=== PATIENT | male | born 2000 | race Caucasian/White ===

== ENCOUNTER 2023-12-04 16:06 | Outpatient (CLI) | payer BC ==
[~2023-12-04 16:06] MED LIST: Iopamidol 370 76% 100 ML VIAL ONE
[2023-12-04 20:45] VITALS: BP 124/84; TEMP 99.5
== END 2023-12-04 16:07 | disposition home or self-care (01) ==
LOC: CT 16:06
PROVIDERS: ATTEND Family Medicine
DX: R10.9 Unspecified abdominal pain (principal); K35.80 Unspecified acute appendicitis; K76.0 Fatty (change of) liver, not elsewhere classified; K76.89 Other specified diseases of liver
CPT/HCPCS: 74170

== ENCOUNTER 2023-12-04 17:03 | Observation (INO) | payer BC ==
[2023-12-04] MEDS ORDERED: Piperacillin/Tazobactam 3.375 GM VIAL ONE (17:43)
[2023-12-04 19:07] LABS: #Basophils Less than 0.03 10x3/uL (0.0-0.2); %Basophils 0.3 % (0.0-1.0); %Eosinophils 0.7 % (0.0-10.0); %Lymphocytes 25.2 % (21.0-51.0); %Monocytes 11.3 % (0.0-10.0); %Neutrophils 62.1 % (42.0-75.0); Hematocrit 43.3 % (42.0-52.0); Hemoglobin 14.6 g/dL (14.0-18.0); Mean Corpuscular HGB CONC 33.7 g/dL (32.0-36.0); Mean Corpuscular Hemoglobin 30.2 pg (27.0-31.0); Mean Corpuscular Volume 89.5 fL (78.0-98.0); Mean Platelet Volume 11.8 fL (7.4-10.4); Platelet Count 204 10x3/uL (130-400); RBC Distribution Width 12.4 % (11.5-14.5); Red Blood Cell (RBC) Count 4.84 mill/uL (4.70-6.10)
[2023-12-04] MEDS ORDERED: Glucagon 1 MG/ML KIT IM PRN (19:09)
[2023-12-04] MEDS ORDERED: Morphine 2 MG/ML VIAL SLOW IVP PRN (19:09)
[2023-12-04] MEDS ORDERED: Dextrose 50% Abboject 50 ML SYRINGE SLOW IVP PRN (19:09)
[2023-12-04] MEDS ORDERED: traMADol HCl 50 MG TAB PO PRN (19:09)
[2023-12-04] MEDS ORDERED: Ipratropium/Albuterol 3 ML NEB NEB PRN (19:09)
[2023-12-04] MEDS ORDERED: Dextrose 5% in Water 1,000 ML IV PRN (19:09)
[2023-12-04] MEDS ORDERED: hydrALAZINE 20 MG/ML VIAL SLOW IVP PRN (19:09)
[2023-12-04] MEDS ORDERED: Acetaminophen 325 MG TAB PO PRN (19:09)
[2023-12-04 19:30] LABS: ALT (SGPT) 71 U/L (8-55); AST (SGOT) 26 U/L (5-34); Albumin 3.8 g/dL (3.5-5.0); Alkaline Phosphatase 82 U/L (40-110); Anion Gap 9 mmol/L (10-20); BUN (Urea Nitrogen) 12 mg/dL (8.9-20.6); Bilirubin, Total 0.7 mg/dL (0.2-1.2); Calc. Creatinine Clearance 0 mL/min (70-130); Calcium 9.5 mg/dL (7.8-10.44); Carbon Dioxide 27 mmol/L (22-29); Chloride 103 mmol/L (98-107); Estimated GFR 102; Globulin 3.1 g/dL (2.4-3.5); Glucose 82 mg/dL (70-105); Lipase 20 U/L (8-78); Potassium 3.9 mmol/L (3.5-5.1); Protein, Total 6.9 g/dL (6.0-8.3); Sodium 135 mmol/L (136-145)
[2023-12-04 22:02] VITALS: BMI 27.5
[2023-12-04] MEDS: HYDROcodone/Acetaminophen 5/325 mg Tablet PO PRN (23:25)
[2023-12-04] MEDS: Piperacillin/Tazobactam 3.375 GM in Sodium Chloride 0.9% 100 ML IVPB SCH (23:25)
[2023-12-04] MEDS: Ketorolac Tromethamine 30 MG (1 mL) VIAL IVP SCH (23:26)
[2023-12-05 05:12] LABS: #Basophils 0.03 10x3/uL (0.0-0.2); %Basophils 0.4 % (0.0-1.0); %Eosinophils 1.3 % (0.0-10.0); %Monocytes 14.2 % (0.0-10.0); %Neutrophils 50.8 % (42.0-75.0); Hematocrit 42.9 % (42.0-52.0); Hemoglobin 14.1 g/dL (14.0-18.0); Mean Corpuscular HGB CONC 32.9 g/dL (32.0-36.0); Mean Corpuscular Volume 91.3 fL (78.0-98.0); Mean Platelet Volume 11.4 fL (7.4-10.4); Platelet Count 206 10x3/uL (130-400); RBC Distribution Width 12.5 % (11.5-14.5)
[2023-12-05 05:37] LABS: Anion Gap 11 mmol/L (10-20); BUN (Urea Nitrogen) 12 mg/dL (8.9-20.6); Calc. Creatinine Clearance 127 mL/min (70-130); Calcium 9.7 mg/dL (7.8-10.44); Carbon Dioxide 28 mmol/L (22-29); Chloride 105 mmol/L (98-107); Estimated GFR 81; Glucose 96 mg/dL (70-105); Sodium 139 mmol/L (136-145)
[2023-12-05] MEDS: Piperacillin/Tazobactam 3.375 GM in Sodium Chloride 0.9% 100 ML IVPB SCH (06:13)
[2023-12-05] MEDS: Pantoprazole DR 40 MG TAB PO SCH (09:00)
[2023-12-05] MEDS ORDERED: PROPOFOL 20 ML ONE ×2 (09:20→11:03)
[2023-12-05] MEDS ORDERED: Fentanyl 250 MCG/5 ML VIAL ONE (09:27)
[2023-12-05] MEDS ORDERED: EPINEPHrine 1 MG/ML VIAL ONE (10:38)
[2023-12-05] MEDS ORDERED: Bupivacaine PF 0.5% 30 ML VIAL ONE (10:38)
[2023-12-05] MEDS ORDERED: Bupivacaine 0.25% HCL 30 ML VIAL ONE (10:39)
[2023-12-05] MEDS ORDERED: Famotidine/PF 20 mg/2ml Vial ONE (10:41)
[2023-12-05] MEDS ORDERED: Lidocaine 2% PF 5 ML VIAL ONE (11:03)
[2023-12-05] MEDS ORDERED: fentaNYL PF 100 MCG/2 ML SYRINGE ONE ×2 (11:03→12:47)
[2023-12-05] MEDS ORDERED: Rocuronium Bromide 10 MG/ML (10ML VIAL) ONE (11:04)
[2023-12-05] MEDS ORDERED: SUCCINYLCHOLINE/SOD CL,ISO/PF 200 MG/10 ML SYRINGE FS ONE (11:04)
[2023-12-05] MEDS ORDERED: Midazolam HCl 2 mg/2 ml Vial ONE (11:24)
[2023-12-05] MEDS ORDERED: Metoclopramide HCl 10 MG (2 mL) VIAL ONE (11:44)
[2023-12-05] MEDS ORDERED: Ketorolac Tromethamine 30 MG (1 mL) VIAL ONE (11:44)
[2023-12-05] MEDS ORDERED: Ondansetron PF 4 MG/2 ML Vial ONE (11:44)
[2023-12-05] MEDS ORDERED: Dexamethasone 4 mg/ml Vial ONE (11:44)
[2023-12-05] MEDS ORDERED: SUGAMMADEX SODIUM 200 MG/2 ML VIAL ONE ×2 (11:44→11:55)
[2023-12-05] MEDS ORDERED: Meperidine HCl/PF 25 MG/ML VIAL SLOW IVP PRN (11:50)
[2023-12-05] MEDS ORDERED: Ondansetron HCl/PF 4 MG/2 ML Vial IVP PRN (11:50)
[2023-12-05] MEDS ORDERED: Promethazine HCl 25 MG/ML VIAL IM PRN (11:50)
[2023-12-05] MEDS: Ondansetron PF 4 MG/2 ML Vial IVP PRN (13:40)
[2023-12-05 17:11] VITALS: BP 134/80; TEMP 96.8
== END 2023-12-05 14:27 | disposition home or self-care (01) ==
LOC: ERS 17:03 → SURG B 19:09
PROVIDERS: ADMIT Surgery; ATTEND Surgery
PROC: 0DTJ4ZZ Resection of Appendix, Percutaneous Endoscopic Approach (ICD-10-PCS; principal; 2023-12-05)
DX: K35.80 Unspecified acute appendicitis (principal); Z79.899 Other long term (current) drug therapy; K76.0 Fatty (change of) liver, not elsewhere classified; K76.89 Other specified diseases of liver
CPT/HCPCS: 36415; 74170; 80048; 80053; 83690; 85025; 88304; 96374; 96375; 96376; G0378; J0171; J0665; J1100; J1885; J2250; J2405; J2543; J2704; J2765; J3010; J3490; Q9967